=== PATIENT | male | born 1985 | race Caucasian/White ===

== ENCOUNTER 2021-02-09 13:09 | Emergency (ER) | payer BC, MEDICAID ==
[2021-02-09] MEDS ORDERED: Metoclopramide 10 MG/2 ML SDV IVPUSH ONE (13:50)
[2021-02-09] MEDS ORDERED: HYDROmorphone 0.5 MG/0.5 ML Syringe IVPUSH ONE (13:50)
--- NOTE | 2021-02-09 13:54 | EDM.PDOC ---
ED HPI GENERAL MEDICAL PROBLEM - General Chief Complaint: Gastrointestinal Problem Stated Complaint: CONSTIPATION Time Seen by Provider: 02/09/21 13:49 Source of Information: Reports: Patient, Family (spouse) History Limitations: Reports: No Limitations - History of Present Illness INITIAL COMMENTS - FREE TEXT/NARRATIVE: 35-year-old male presents to the ED in the accompaniment of his . The history suggest that he is having upper abdominal epigastric pain for the last several days. Patient has a history of multiple endocrine neoplasia type II and has had previous 20% of his pancreas resected 6 feet of small bowel removed from bowel obstruction and splenectomy. 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 He suffers from recurrent peptic ulcer disease. He has had 3-1/2 of his parathyroid glands resected. Known to have a pituitary adenoma as well. He states since at least February 05 he is appreciated difficulty eating and a profuse swelling in the epigastrium like he ate a football for the last 2- 1/2 days. He states he did get down a hamburger yesterday but vomited up during the night with spaghetti noodles also that he did eaten several days ago sug gesting that he has gastroparesis or gastric outlet obstruction. He has missed only 1 tablet of his proton pump inhibitor. His mother suddenly 2 days ago here in [place] cause unknown. His reports that he is a severe worry wart. He is a long-haul corporate development manager. He does not smoke rarely drinks alcohol. He has not been able to keep much fluids or food down for the last 3 to 4 days and feels slightly lightheaded dizzy and weak. His bowels are still moving and he is aware of passing flatus. Onset: Gradual Onset Date: 02/05/21 (At least over the last 5 days.) Duration: Day(s):, Constant, Getting Worse, Other (Epigastric swelling has improved since vomiting early this morning.) Location: Reports: Abdomen (Epigastric abdominal pain rating through to his back between his shoulder blades.) Quality: Reports: Ache, Burning, Pressure Severity: Moderate (7-8 out of 10) Improves with: Reports: None Worsens with: Reports: Eating (Trying to eat or drink makes the pain much worse.) Context: Denies: Activity, Exercise, Lifting, Sick Contact, Trauma, Other Associated Symptoms: Reports: Loss of Appetite, Malaise, Nausea/Vomiting, Weakness, Other (Lightheaded dizziness with standing). Denies: No Other Symptoms, Confusion, Chest Pain, Cough, cough w sputum, Diaphoresis, Fever/Chills, Headaches, Rash, Seizure, Shortness of Breath, Syncope Middle Anterior Abdomen Pain Score (Numeric/FACES): 9 - Related Data Allergies Allergy/AdvReac Type Severity Reaction Status Date / Time No Known Allergies Allergy Verified 02/09/21 13:40 Home Meds: Home Meds Metoclopramide HCl [Reglan] 10 mg PO Q8H #12 tablet 02/09/21 [Rx] Omeprazole 40 mg PO DAILY 02/09/21 [History] Past Medical History Endocrine/Metabolic History: Reports: Other (See Below) (Multiple endocrine neoplasia type II. He has had 3-1/2 of his parathyroid glands resected. Previous peptic ulcer disease involving his esophagus and stomach and pylorus. Small bowel obstruction with loss of 6 feet of small bowel. 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 Splenectomy 20% of pancreas resected. 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 Peptic ulcer disease) Social & Family History - Tobacco Use Tobacco Use Status *Q: Never Tobacco User - Alcohol Use Alcohol Use History: Yes Days Per Week of Alcohol Use: 1 Number of Drinks Per Day: 1 (Drinks an occasional beer.) Total Drinks Per Week: 1 - Living Situation & Occupation Living situation: Reports: (Long-haul corporate development manager) Occupation: Employed ED ROS GENERAL - Review of Systems Review Of Systems: See Below Constitutional: Reports: Decreased Appetite (Cannot eat as he stomach feels too full). Denies: Fever, Malaise, Weakness, Fatigue, Weight Loss HEENT: Reports: No Symptoms Respiratory: Reports: No Symptoms Cardiovascular: Reports: No Symptoms Endocrine: Reports: Fatigue GI/Abdominal: Reports: Abdominal Pain (Severe epigastric abdominal pain radiates to his back tube), Decreased Appetite ( in between both shoulder blades.), Nausea, Vomiting (Did vomit early this morning and food he had eaten 2 to 3 days ago is apparent suggesting gastric outlet obstruction or gastroparesis. Likely due to peptic ulcer disease) : Reports: No Symptoms Musculoskeletal: Reports: No Symptoms Skin: Reports: No Symptoms Neurological: Reports: No Symptoms Psychiatric: Reports: No Symptoms Hematologic/Lymphatic: Reports: No Symptoms Immunologic: Reports: No Symptoms ED EXAM, GI/ABD - Physical Exam Exam: See Below Exam Limited By: No Limitations General Appearance: Alert, WD/WN, No Apparent Distress, Mild Distress, Other (Temperature is 36.4 degrees. Heart rate 81 and sinus respiratory is 18 with O2 sats of 95% room air) Eyes: Bilateral: Normal Appearance (No blepharal pallor or scleral icterus) Throat/Mouth: Normal Inspection (Tongue is mildly dry), Normal Lips, Normal Teeth, Normal Oropharynx, Other Head: Atraumatic, Normocephalic Neck: Normal Inspection, Supple, Non-Tender, Full Range of Motion. No: Lymphadenopathy (L), Lymphadenopathy (R) Respiratory/Chest: No Respiratory Distress, Lungs Clear, Normal Breath Sounds, No Accessory Muscle Use Cardiovascular: Normal Peripheral Pulses, Regular Rate, Rhythm, No Edema, No Gallop, No Murmur, No Rub GI/Abdominal Exam: Normal Bowel Sounds, Soft, No Organomegaly, No Mass, Pelvis Stable, Guarding, Tender (Tenderness in the epigastrium on palpation with slight guarding), Other (Well-healed midline cyst supra umbilical surgical scar from previous small bowel resection). No: Rigid, Rebound (Epigastrium) (Male) Exam: No Hernia Back Exam: Normal Inspection, Full Range of Motion. No: CVA Tenderness (L), CVA Tenderness (R) Extremities: Normal Inspection, Normal Range of Motion, Non-Tender, No Pedal Edema Neurological: Alert, Oriented, CN II-XII Intact, Normal Cognition Psychiatric: Normal Affect, Anxious Skin Exam: Warm, Dry, Intact (Mildly anxious), Normal Color, No Rash Course - Vital Signs Last Recorded V/S: Last Vital Signs Temp 36.4 C 02/09/21 13:27 Pulse 81 02/09/21 13:27 Resp 18 02/09/21 13:27 BP Pulse Ox 95 02/09/21 13:27 - Orders/Labs/Meds Orders: Active Orders 24 hr Category Date Time Status Abdomen 1V Flat [CR] Stat Exams 02/09/21 13:51 Taken Abdomen Pelvis w Cont [CT] Stat Exams 02/09/21 14:15 Taken CHROMOGRANIN A [REF] Urgent Lab 02/09/21 17:47 Received GASTRIN, SERUM [REF] Stat Lab 02/09/21 17:47 Received Dextrose 5%-0.9% NaCl [Dextrose 5%-Normal Saline] 1,000 Med 02/09/21 14:00 Active ml IV ASDIRECTED Sodium Chloride 0.9% [Saline Flush] Med 02/09/21 15:03 Active 10 ml FLUSH ONETIME PRN Medication Orders Dextrose/Sodium Chloride (Dextrose 5%-Normal Saline) 1,000 mls @ 999 mls/hr IV ASDIRECTED NATALIYA Last Admin: 02/09/21 14:23 Dose: 999 mls/hr Documented by: KOLTON Sodium Chloride (Sodium Chloride 0.9% 10 Ml Syringe) 10 ml FLUSH ONETIME PRN PRN Reason: Keep Vein Open Last Admin: 02/09/21 15:40 Dose: 10 ml Documented by: ROSAURA Labs: Laboratory Tests 02/09/21 02/09/21 02/09/21 Range/Units 14:20 14:20 14:20 WBC 9.80 H (4.23-9.07) K/mm3 RBC 4.84 (4.63-6.08) M/mm3 Hgb 15.5 (13.7-17.5) gm/dl Hct 46.1 (40.1-51.0) % MCV 95.2 H (79.0-92.2) fl MCH 32.0 (25.7-32.2) pg MCHC 33.6 (32.2-35.5) g/dl RDW Std Deviation 48.1 H (35.1-43.9) fL Plt Count 434 H (163-337) K/mm3 MPV 9.3 L (9.4-12.3) fl Neut % (Auto) 53.3 (34.0-67.9) % Lymph % (Auto) 25.1 (21.8-53.1) % [place] % (Auto) 17.0 H (5.3-12.2) % Eos % (Auto) 4.0 (0.8-7.0) Baso % (Auto) 0.4 (0.1-1.2) % Neut # (Auto) 5.22 (1.78-5.38) K/mm3 Lymph # (Auto) 2.46 (1.32-3.57) K/mm3 [place] # (Auto) 1.67 H (0.30-0.82) K/mm3 Eos # (Auto) 0.39 (0.04-0.54) K/mm3 Baso # (Auto) 0.04 (0.01-0.08) K/mm3 Manual Slide Review Abnormal smear Sodium 141 (136-145) mEq/L Potassium 4.0 (3.5-5.1) mEq/L Chloride 105 (98-107) mEq/L Carbon Dioxide 29 (21-32) mEq/L Anion Gap 11.0 (5-15) BUN 13 (7-18) mg/dL Creatinine 1.1 (0.7-1.3) mg/dL Est Cr Clr Drug Dosing TNP Estimated GFR (MDRD) > 60 (>60) mL/min BUN/Creatinine Ratio 11.8 L (14-18) Glucose 97 (70-99) mg/dL Calcium 9.2 (8.5-10.1) mg/dL Magnesium 2.0 (1.8-2.4) mg/dL Total Bilirubin 0.7 (0.2-1.0) mg/dL AST 21 (15-37) U/L ALT 26 (16-63) U/L Alkaline Phosphatase 59 (46-116) U/L Troponin I < 0.017 (0.00-0.056) ng/mL C-Reactive Protein 0.2 (<1.0) mg/dL Total Protein 8.0 (6.4-8.2) g/dl Albumin 3.8 (3.4-5.0) g/dl Globulin 4.2 gm/dL Albumin/Globulin Ratio 0.9 L (1-2) Lipase 66 L (73-393) U/L Ketones 0.15 (0.0-0.3) mM Meds: Medications Generic Name Dose Route Start Last Admin Trade Name Freq PRN Reason Stop Dose Admin Dextrose/Sodium Chloride 1,000 mls @ 999 mls/hr 02/09/21 14:00 02/09/21 14:23 Dextrose 5%-Normal Saline IV 999 mls/hr ASDIRECTED NATALIYA Administration Sodium Chloride 10 ml 02/09/21 15:03 02/09/21 15:40 Sodium Chloride 0.9% 10 Ml Syringe FLUSH 10 ml ONETIME PRN Administration Keep Vein Open Discontinued Medications Generic Name Dose Route Start Last Admin Trade Name Freq PRN Reason Stop Dose Admin Diatrizoate Meglum/Diatrizoate Sod 30 ml 02/09/21 15:02 02/09/21 15:39 Diatrizoate Meglumine/Diatrizoate Sodium 37% 120 Ml Bottle PO 02/09/21 15:03 30 ml ONETIME ONE Administration Hydromorphone HCl 0.5 mg 02/09/21 13:50 02/09/21 14:22 Hydromorphone 0.5 Mg/0.5 Ml Syringe IVPUSH 02/09/21 13:51 0.5 mg ONETIME ONE Administration Iopamidol 100 ml 02/09/21 15:02 02/09/21 15:39 Iopamidol 612 Mg/Ml 100 Ml Bottle IVPUSH 02/09/21 15:03 100 ml ONETIME ONE Administration Iopamidol 50 ml 02/09/21 15:02 02/09/21 15:39 Iopamidol 612 Mg/Ml 50 Ml Sdv IVPUSH 02/09/21 15:03 25 ml ONETIME ONE Administration Metoclopramide HCl 10 mg 02/09/21 13:50 02/09/21 14:23 Metoclopramide 10 Mg/2 Ml Sdv IVPUSH 02/09/21 13:51 10 mg ONETIME ONE Administration Pantoprazole Sodium 80 mg 02/09/21 14:05 02/09/21 14:23 Pantoprazole 40 Mg Vial IVPUSH 02/09/21 14:06 80 mg BOLUS ONE Administration - Radiology Interpretation Free Text/Narrative:: 35-year-old male presents to the ED with a complex past history with diagnosis of multiple endocrine neoplasia type II in about 2008. He developed a small bowel obstruction after perforation. EGD identified multiple ulcerations in his esophagus stomach and duodenum. At the time of surgery he lost 20% of his pancreas and his spleen. He has subsequently been maintained on proton pump inhibitor omeprazole 40 mg daily for the last 12 years. He has had 3-1/2 of his parotid glands resected. Known to have a pituitary adenoma. Recent history suggests gastric outlet obstruction with large pressure and distention of his epigastrium like a football for 2 to 3 days. Partially relieved by vomiting last evening and some of the emesis contained spaghetti noodles that he had eaten several days ago. Pain is radiating through constantly to his mid back between the shoulder blades. Even water sometimes will not go down. The only thing he ate all day yesterday was a hamburger in [employer] but he vomited this up early this morning. Rarely drinks alcohol. Non-smoker. He did miss one of his omeprazole tablets this week. Of note his mother suddenly 2 days ago here in [place] during her sleep. Cause of unknown. His reports that he is extremely anxious and this certainly has not helped matters. He presents to the ED feeling lightheaded dizzy and weak as he not been able to take in adequate fluids or nutrition for the last several days. Benign abdominal examination. Plan KUB. This will be followed by CT of the abdomen pelvis with oral contrast. Given Reglan 10 mg IV in the hopes of relieving potential gastroparesis. Protonix 80 mg IV bolus. Given Dilaudid 0.5 mg IV as well for pain relief. Routine labs to be obtained including serum lipase. Patient will receive IV fluids D5 normal saline at open. - Re-Assessments/Exams Free Text/Narrative Re-Assessment/Exam: 02/09/21 14:45: X-ray of the abdomen reveals normal gastric air. No free air. The right hemicolon contains a fair amount of stool but the rest of the colon is fairly empty. We will proceed with CT of the abdomen with oral and IV contrast.Hematology reveals a normal white count at 9.80. The auto differential reveals 53% neutrophils. Hemoglobin is 15.5 with hematocrit of 46.1. MCV is 95.2. Platelet count slightly elevated at 434,000 02/09/21 16:01 Chemistry reveals sodium 141 potassium of 4.0. Chloride 105 with a bicarb of twenty-nine. Anion gap is 11.0 with a BUN of thirteen and creatinine of 1.1. GFR remains greater than sixty. Glucose is ninety-seven with a calcium of 9.2. Magnesium 2.0 total bilirubin is 0.7 AST is twenty-one ALT was twenty- six alkaline phosphatase is fifty-nine. Troponin I is less than 0.017. C- reactive protein is 0.2 total protein 8.0 with an albumin fraction of 3.8 serum lipase is normal at sixty-six. CT of the abdomen pelvis has been completed. Visualized portions of the lung bases are normal. Cardiac silhouette appears normal. There is a small hiatal hernia. The stomach does contain a good deal of food within it. Contrast has percolated through the duodenum and throughout the entire small bowel and into the large bowel. Therefore no signs of significant gastric obstruction. Liver appears normal. Spleen is absent. The pancreas has been surgically manipulated with loss of the tail of the pancreas. The large bowel appears intact. Genitourinary organs appear normal. No of fluid within the pelvis. Both kidneys appear normal with no obstruction of the ureters and no stones within the kidneys. 02/09/21 17:39 I did discuss the case with Dr. Jamie Tapia on-call surgeon and he did see the patient in the ED in consultation. He will follow up with him later this week for potential EGD. In the interim he is asked me to order a serum gastrin level and chromogen a level which I we will have the lab draw as they are both send outs. The results are to go to Dr. Jamie Tapia's office Departure - Departure Time of Disposition: 17:25 Disposition: Home, Self-Care 01 Condition: Fair Clinical Impression: Multiple endocrine neoplasia (MEN) syndrome, Partial gastric outlet obstruction - Discharge Information *PRESCRIPTION DRUG MONITORING PROGRAM REVIEWED*: Not Applicable *COPY OF PRESCRIPTION DRUG MONITORING REPORT IN PATIENT ЕЛЕНА: Not Applicable Prescriptions: Metoclopramide HCl [Reglan] 10 mg PO Q8H #12 tablet Instructions: Abdominal Pain, Adult, [id number] Referrals: PCP,None [Primary Care Provider] - Forms: ED Department Discharge Additional Instructions: Evaluation in the emergency room today in regards to significant epigastric pressure and bloat and swelling over the last 4 to 5 days with vomiting during the night of food eaten several days ago. This indicates that the stomach is not emptying or churning properly. You have a history of multiple endocrine neoplasia with history of gastrinomas and previous surgical resection of the tail of your pancreas removal of your spleen in 6 feet of small bowel from bowel obstruction. CT scan of the abdomen has been completed with oral and IV contrast and reveals that you do have a small hiatal hernia which means the upper portion of your stomach likes to move in and out of the diaphragm where it attaches to the food pipe which may send pain up into your throat and neck and even into your left arm. However there is still food within the body of the stomach concerning that it is not passing through the pylorus which is the junction between the stomach and the small bowel called the duodenum. I suspect the this area is narrowed due to previous surgery and perhaps formation of a another gastrinoma. It is my suggestion that you stick to a relatively fluid diet for the next several days perhaps a week to allow your stomach to empty before eating a large meal. As we discussed follow-up with Dr. Jamie Tapia surgeon here at the hospital to arrange an upper GI endoscopy and exploration of your stomach in the near future. In regards to your right knee pain follow-up with Dr. Escobar orthopedic surgeon would be indicated as well when you are able to arrange an appointment. His phone number is [phone] to arrange an appointment[address] Dr. Tapia's number is [phone]. Continue omeprazole 40 mg or Nexium 40 mg once daily. An anti histamine such as Ladan 10 mg once daily may also help relieve secretion of gastric from your stomach. Sepsis Event Note (ED) - Evaluation Sepsis Screening Result: No Definite Risk - Focused Exam Vital Signs: Vital Signs Temp Pulse Resp Pulse Ox 02/09/21 13:27 36.4 C 81 18 95 - My Orders Last 24 Hours: My Active Orders 02/09/21 13:51 Abdomen 1V Flat [CR] Stat 02/09/21 14:00 Dextrose 5%-0.9% NaCl [Dextrose 5%-Normal Saline] 1,000 ml IV ASDIRECTED 02/09/21 14:15 Abdomen Pelvis w Cont [CT] Stat 02/09/21 15:03 Sodium Chloride 0.9% [Saline Flush] 10 ml FLUSH ONETIME PRN 02/09/21 17:47 CHROMOGRANIN A [REF] Urgent GASTRIN, SERUM [REF] Stat - Assessment/Plan Last 24 Hours: My Active Orders 02/09/21 13:51 Abdomen 1V Flat [CR] Stat 02/09/21 14:00 Dextrose 5%-0.9% NaCl [Dextrose 5%-Normal Saline] 1,000 ml IV ASDIRECTED 02/09/21 14:15 Abdomen Pelvis w Cont [CT] Stat 02/09/21 15:03 Sodium Chloride 0.9% [Saline Flush] 10 ml FLUSH ONETIME PRN 02/09/21 17:47 CHROMOGRANIN A [REF] Urgent GASTRIN, SERUM [REF] Stat
[2021-02-09] MEDS ORDERED: Dextrose 5%-0.9% NaCl 1,000 ML IV SCH (14:00)
[2021-02-09] MEDS ORDERED: Pantoprazole 40 MG Vial IVPUSH ONE (14:05)
[2021-02-09] MEDS ORDERED: Iopamidol 612 MG/ML 50 ML SDV IVPUSH ONE (15:02)
[2021-02-09] MEDS ORDERED: Diatrizoate Meglumine/Diatrizoate Sodium 37% 120 ML Bottle PO ONE (15:02)
[2021-02-09] MEDS ORDERED: Iopamidol 612 MG/ML 100 ML Bottle IVPUSH ONE (15:02)
[2021-02-09] MEDS ORDERED: Sodium Chloride 0.9% 10 ML Syringe FLUSH PRN (15:03)
--- NOTE | 2021-02-10 07:57 | CT ---
CT abdomen and pelvis Technique: Multiple axial sections were obtained from above the dome of the diaphragm inferiorly through the pubic symphysis. Intravenous and oral contrast were utilized. Delayed images were also obtained through the bladder. Comparison: No prior abdominal imaging is available. Findings: Visualized lung bases show nothing acute. Liver contains no focal abnormality. Spleen is not visualized. Adrenal glands show no nodule. Pancreas appears within normal limits. Gallbladder contains no calcified gallstones. Small 1.1 cm cyst is noted within the left kidney. Small cortical lesion is otherwise seen which is too small to accurately measure but most likely is due to an additional cyst. Left kidney also shows several small nonobstructing calculi. No ureteral dilatation or ureteral stone is seen. Abdominal aorta shows no aneurysm. No retroperitoneal adenopathy or mesenteric abnormalities are seen. Appendix is seen which is normal in size. No pelvic mass or adenopathy is seen. Delayed images show contrast within the distal left ureter and within the bladder. Bone window settings were reviewed which show no acute abnormality. Impression: 1. Prior splenectomy. Several small left-sided renal cysts are seen. Several small nonobstructing calculi are seen within the left kidney. 2. Nothing acute is appreciated on CT study of the abdomen and pelvis. Diagnostic code #2 I agree with preliminary report from [facility], finalized on 02/09/21, 5:14 PM CDT, code 1
--- NOTE | 2021-02-10 08:10 | CR ---
Abdomen: Supine view of the abdomen was obtained. Comparison: Subsequent CT abdomen and pelvis study performed later on the same day. Surgical clips are seen within the left upper abdomen with a single surgical clip seen within the mid left abdomen. Bowel gas is noted within the left upper abdomen. No spleen is seen. Bowel gas pattern is otherwise unremarkable. No soft tissue abnormality is seen. No abnormal calcifications are seen. Impression: 1. Incidental findings. Nothing acute is seen. Diagnostic code #2
== END 2021-02-09 18:04 | disposition home or self-care (01) ==
LOC: JD.ED 13:09
DX: K31.1 Adult hypertrophic pyloric stenosis (principal); E31.20 Multiple endocrine neoplasia [MEN] syndrome, unspecified; Z79.899 Other long term (current) drug therapy
CPT/HCPCS: 36415; 74018; 74177; 80053; 82009; 82941; 83690; 83735; 84484; 85025; 86140; 86316; 96374; 96375; 99284; C9113; J1170; J2765; J7042; Q9963; Q9967

== ENCOUNTER 2021-02-14 07:37 | Day surgery (SDC) | payer MEDICAID ==
[~2021-02-14 07:37] MED LIST: Lactated Ringers 1,000 ML IV SCH; Lidocaine 1% 4 ML ONE; Lidocaine 1%/Sod Bicarbonate in NS 8.4% 1 ML Syringe IDERM PRN; Midazolam 1 MG/ML 2 ML SDV ONE; Propofol 200 MG/20 ML SDV ONE; Sodium Chloride 0.9% 10 ML Syringe FLUSH PRN; fentaNYL 100 MCG/2 ML SDV ONE
--- NOTE | 2021-02-14 07:56 | PCM.PREANE ---
Preanesthetic Assessment - Procedure Proposed Procedure: Diagnostic EGD - Anesthesia/Transfusion/Family Hx Anesthesia History: Prior Anesthesia Without Reaction Family History of Anesthesia Reaction: No Transfusion History: No Prior Transfusion(s) - Review of Systems General: No Symptoms Pulmonary: No Symptoms Cardiovascular: No Symptoms Gastrointestinal: No Symptoms Neurological: No Symptoms Other: Reports: Thyroid Problems (parathyroid removed for tumors) - Physical Assessment NPO Status Date: 02/13/21 NPO Status Time: 00:00 Height: 1.75 m Weight: 107 kg ASA Class: 2 Mental Status: Alert & Oriented x3 Airway Class: Mallampati = 2 Dentition: Reports: Normal Dentition Thyro-Mental Finger Breadths: 2 Mouth Opening Finger Breadths: 3 ROM/Head Extension: Full Lungs: Clear to Auscultation, Normal Respiratory Effort Cardiovascular: Regular Rate, Regular Rhythm - Allergies Allergies/Adverse Reactions: Allergies Allergy/AdvReac Type Severity Reaction Status Date / Time No Known Allergies Allergy Verified 02/13/21 11:38 - Blood Blood Available: No Product(s) Available: None - Anesthesia Plan Pre-Op Medication Ordered: None - Acknowledgements Anesthesia Type Planned: MAC Pt an Appropriate Candidate for the Planned Anesthesia: Yes Alternatives and Risks of Anesthesia Discussed w Pt/Guardian: Yes Pt/Guardian Understands and Agrees with Anesthesia Plan: Yes PreAnesthesia Questionnaire HEENT History: Reports: None Cardiovascular History: Reports: None Respiratory History: Reports: None Gastrointestinal History: Reports: Other (See Below) Other Gastrointestinal History: 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 Genitourinary History: Reports: Ren[employer] History: Reports: None Musculoskeletal History: Reports: None Neurological History: Reports: None Psychiatric History: Reports: None Endocrine/Metabolic History: Reports: Other (See Below) Other Endocrine/Metabolic History: multiple endocrine neoplasia I Hematologic History: Reports: None Immunologic History: Reports: None Oncologic (Cancer) History: Reports: None Dermatologic History: Reports: None - Infectious Disease History Infectious Disease History: Reports: None - Past Surgical History Head Surgeries/Procedures: Reports: None HEENT Surgical History: Reports: None Cardiovascular Surgical History: Reports: None Respiratory Surgical History: Reports: None GI Surgical History: Reports: EGD, Other (See Below) Other GI Surgeries/Procedures: pancreatic surgery, splenectomy Female Surgical History: Reports: None Male Surgical History: Reports: None Endocrine Surgical History: Reports: Parathyroidectomy, Thyroidectomy Neurological Surgical History: Reports: None Musculoskeletal Surgical History: Reports: None Oncologic Surgical History: Reports: None Dermatological Surgical History: Reports: None - SUBSTANCE USE Tobacco Use Status *Q: Current Every Day Tobacco User Tobacco Use Within Last Twelve Months: Snuff/Dip Second Hand Smoke Exposure: No Days Per Week of Alcohol Use: 1 Number of Drinks Per Day: 2 Total Drinks Per Week: 2 Recreational Drug Use History: No - HOME MEDS Home Medications: Home Meds Ascorbic Acid [Vitamin C] 500 mg PO BID 02/13/21 [History] Cabergoline 0.5 mg PO ASDIRECTED 02/13/21 [History] Calcium Carbonate [Calcium] 2,400 mg PO DAILY 02/13/21 [History] Cholecalciferol (Vitamin D3) [Vitamin D3] 5,000 unit PO BID 02/13/21 [History] Esomeprazole Magnesium [Nexium] 40 mg PO BID 02/13/21 [History] Ferrous Sulfate [Iron] 325 mg PO BID 02/13/21 [History] Fish Oil/[place]-3 Fatty Acids [Fish Oil 1,000 MG] 1 gm PO BID 02/13/21 [History] Magnesium 250 mg PO DAILY 02/13/21 [History] Multivitamin 1 tab PO DAILY 02/13/21 [History] Sucralfate [Carafate] 1 gm PO QID 02/13/21 [History] Testosterone Cypionate [Depo-Testosterone] 1 dose IM Q7D 02/13/21 [History] calcitrioL [Calcitriol] 0.25 mg PO BID 02/13/21 [History] - CURRENT (IN HOUSE) MEDS Current Meds: Current Medications Lactated Ringer's (Ringers, Lactated) 1,000 mls @ 125 mls/hr IV ASDIRECTED NATALIYA Lidocaine/Sodium Bicarbonate (Lidocaine 1%/Sod Bicarbonate In Ns 8.4% 1 Ml Syringe) 0.25 ml IDERM ONETIME PRN PRN Reason: Prior to IV Start Sodium Chloride (Sodium Chloride 0.9% 10 Ml Syringe) 10 ml FLUSH ASDIRECTED PRN PRN Reason: Keep Vein Open Discontinued Medications Fentanyl (Fentanyl 100 Mcg/2 Ml Sdv) Confirm Administered Dose 100 mcg .ROUTE .STK-MED ONE Stop: 02/14/21 07:09 Lidocaine HCl (Xylocaine-Mpf 1%) Confirm Administered Dose 4 mls @ as directed .ROUTE .STK-MED ONE Stop: 02/14/21 07:08 Midazolam HCl (Midazolam 1 Mg/Ml 2 Ml Sdv) Confirm Administered Dose 2 mg .ROUTE .STK-MED ONE Stop: 02/14/21 07:09 Propofol (Propofol 200 Mg/20 Ml Sdv) Confirm Administered Dose 200 mg .ROUTE .STK-MED ONE Stop: 02/14/21 07:08
--- NOTE | 2021-02-14 09:11 | PCM.PRNOTE ---
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 No ulceration noted. No peptic stricture. 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 Detailed Report: The patient was taken to the endoscopy suite and placed in left lateral decubitus position. A bite-block was placed, timeout was performed and monitored anesthesia care was initiated. The endoscope was inserted into the mouth and advanced to the distal duodenum with ease. Beyond the duodenal bulb, a small polypoid neoplastic lesion was identified. This was removed with large cold forceps; on grasping, caseous material exuded from the lesion. An additional mucosal biopsy from the duodenal bulb was obtained. The scope was withdrawn into the stomach. The pylorus appeared normal as did the antrum. A sample of mucosa from the antrum was obtained with cold forceps. It was difficult to distend the stomach with air due to the patient's continuous belching throughout the procedure. The proximal gastric mucosa appeared erythematous and edematous; a sample biopsy from this abnormal appearing tissue was obtained with cold forceps. On retroflexion, a few centimeter wide hiatal hernia was noted with wide open LES. The scope was withdrawn to the distal esophagus. The Z-line was poorly defined, and there appeared to be salmon- colored tongues of mucosa extending proximally, consistent with long segment Solano's. Several biopsies of the metaplastic appearing tissue were obtained with cold forceps. No significant gross esophagitis was appreciated. Air was suctioned from the stomach and esophagus as the scope was withdrawn. The patient tolerated the procedure well.
--- NOTE | 2021-02-14 09:15 | PCM48HPAN ---
Post Anesthesia Note - EVALUATION WITHIN 48HRS OF ANESTHETIC Vital Signs in Normal Range: Yes Patient Participated in Evaluation: Yes Respiratory Function Stable: Yes Airway Patent: Yes Cardiovascular Function Stable: Yes Hydration Status Stable: Yes Pain Control Satisfactory: Yes Nausea and Vomiting Control Satisfactory: Yes Mental Status Recovered: Yes Vital Signs: 96% 74 16 98.1 115/75
== END 2021-02-14 09:55 | disposition home or self-care (01) ==
LOC: JD.SDS 07:37
PROVIDERS: ATTEND Surgery
DX: K22.70 Barrett's esophagus without dysplasia (principal); E31.21 Multiple endocrine neoplasia [MEN] type I; K44.9 Diaphragmatic hernia without obstruction or gangrene; K31.89 Other diseases of stomach and duodenum; K21.9 Gastro-esophageal reflux disease without esophagitis; I78.1 Nevus, non-neoplastic; Z79.899 Other long term (current) drug therapy; Z98.890 Other specified postprocedural states
CPT/HCPCS: 00731; J2250; J2704; J3010; J7120

== ENCOUNTER 2023-03-10 17:45 | Emergency (ER) | payer MEDICAID ==
[2023-03-10 18:51] LABS: HEMOGLOBIN 14.5 gm/dl (14.0-18.0); MEAN CORPUSCULAR HEMOGLOBIN 32.2 pg (28.0-32.0); MEAN CORPUSCULAR HGB CONC 34.5 g/dl (32.0-36.0); MEAN CORPUSCULAR VOLUME 93.3 fl (83.0-99.0); MEAN PLATELET VOLUME 8.6 fl (9.4-12.4); PLATELET COUNT,PLT 265 K/mm3 (150-400); WHITE BLOOD CELL COUNT,WBC 9.51 K/mm3 (3.9-11.3)
[2023-03-10 18:53] LABS: INFLUENZA A NAA NEGATIVE (NEGATIVE); RESPIRATORY SYNCYTIAL VIR NAA NEGATIVE (NEGATIVE)
[2023-03-10 19:19] LABS: A/G RATIO 0.8 (1-2); ALBUMIN 3.4 g/dl (3.4-5.0); ANION GAP 15.3 (5-15); BILIRUBIN TOTAL 0.3 mg/dL (0.2-1.0); BUN/CREATININE RATIO 6.7 (14-18); CALCIUM 7.7 mg/dL (8.5-10.1); CREATININE 1.2 mg/dL (0.7-1.3); EST CRCL DRUG DOSING (CG) 83.47 mL/min; POTASSIUM,K 3.3 mEq/L (3.5-5.1); PROTEIN TOTAL,TP 7.5 g/dl (6.4-8.2)
[2023-03-10 19:26] LABS: CORONAVIRUS COVID-19 NAA POSITIVE (NEGATIVE)
[2023-03-10 19:37] LABS: BAND PERCENT MAN 0 % (0-10); BASOPHILS PERCENT MAN 1 (0.2-1.2); EOSINOPHILS PERCENT MAN 1 % (0.8-7.0); LYMPHOCYTES % ATYPICAL MANUAL 0 %; LYMPHOCYTES PERCENT MAN 20 % (20-40); MONOCYTES PERCENT MAN 10 % (2-10)
[2023-03-10 19:38] LABS: PLATELET COUNT ESTIMATE ADEQUATE
[2023-03-10] MEDS ORDERED: Acetaminophen 325 MG Tab PO ONE (20:16)
[2023-03-11] MEDS ORDERED: Hydrocortisone 10 MG Tab PO ONE (20:12)
== END 2023-03-10 21:00 | disposition left against medical advice (07) ==
LOC: JD.ED 17:45
DX: U07.1 COVID-19 (principal); E27.40 Unspecified adrenocortical insufficiency
CPT/HCPCS: 0241U; 36415; 71045; 80053; 85007; 85027; 87651; 99283; A9270

== ENCOUNTER 2023-04-10 10:55 | Emergency (ER) | payer MEDICAID ==
[2023-04-10] MEDS ORDERED: Albuterol/Ipratropium 3.0-0.5 MG/3 ML Neb Soln NEB ONE (11:37)
== END 2023-04-10 13:05 | disposition home or self-care (01) ==
LOC: JD.ED 10:55
DX: J40 Bronchitis, not specified as acute or chronic (principal); Z79.899 Other long term (current) drug therapy
CPT/HCPCS: 71046; 71046-26; 94640; 99285; J7620-GY

== ENCOUNTER 2024-10-16 13:04 | Emergency (ER) | payer MEDICAID ==
[2024-10-16] MEDS: Ketorolac 60 MG/2 ML SDV IM ONE (13:56)
== END 2024-10-16 14:16 | disposition home or self-care (01) ==
LOC: JD.ED 13:04
DX: S39.012A Strain of muscle, fascia and tendon of lower back, initial encounter (principal); M54.31 Sciatica, right side; Z79.899 Other long term (current) drug therapy; X58.XXXA Exposure to other specified factors, initial encounter
CPT/HCPCS: 96372; 99283; A9270; J1885